=== PATIENT | female | born 1990 | race American Indian/Alaskan Native ===

== ENCOUNTER 2017-08-29 19:57 | Inpatient (IN) | payer MEDICAID ==
[2017-08-29] MEDS ORDERED: ASPIRIN PO ONE (20:53)
[2017-08-29 21:36] LABS: Basophils % (Auto) 0.4 % (0.0-1.8); Hematocrit 35.3 % (30.3-42.9); Hemoglobin 11.8 gm/dl (10.1-14.3); Lymphocytes # (Auto) 1.3 K/mm3 (1.2-5.4); Lymphocytes % (Auto) 13.2 % (13.4-35.0); Mean Corpuscular HGB Conc 34 % (30-34); Mean Corpuscular Hemoglobin 26 pg (28-32); Mean Corpuscular Volume 77 fl (79-97); Monocytes # (Auto) 0.4 K/mm3 (0.0-0.8); Monocytes % (Auto) 4.4 % (0.0-7.3); Platelet Count 332 K/mm3 (140-440); Red Blood Count 4.58 M/mm3 (3.65-5.03); Red Cell Distribution Width 15.1 % (13.2-15.2)
[2017-08-29 22:23] LABS: BUN/Creatinine Ratio 23; Blood Urea Nitrogen 9 mg/dL (7-17); Calcium 10.5 mg/dL (8.4-10.2); Hemolysis Index 1
[2017-08-29] MEDS ORDERED: NACL 0.9% 1000 ML 1,000 ML IV ONE (23:56)
[2017-08-29] MEDS ORDERED: REGLAN IV ONE (23:58)
--- NOTE | 2017-08-30 00:02 | Emergency Department Report ---
HPI - General Chief Complaint: Chest Pain Time Seen by Provider: 08/29/17 23:43 - HPI HPI: Room 8 The patient is a 27-year-old female presented with a chief complaint of chest pain. The patient states she developed substernal chest pain and shortness of breath last night. The patient states she has a substernal tightness/squeezing pain that has been intermittent since last night. The patient states it is associated with shortness of breath, nausea/vomiting and possibly diaphoresis. Patient states she is also had intermittent lower abdominal pain for the past 2 days. Patient denies fever or vaginal bleeding. The patient states she was diagnosed with a PE during her last approximately 2 years ago. The patient states she is only on aspirin currently Location: Chest Duration: Intermittent since yesterday Quality: Squeezing Severity: Moderate Modifying factors: [see above] Context: [see above] Mode of transportation: [not driving] ED Past Medical Hx - Past Medical History Previous Medical History?: Yes Hx Pulmonary Embolism: Yes (during ) Additional medical history: pre eclampsia. hyperthyroidism. hypergravidarum. anemia. gastritis - Surgical History Past Surgical History?: No - Family History Family history: no significant - Social History Smoking Status: Never Smoker Substance Use Type: None (denies illicit drug use) - Medications Home Medications: Home Medications Medication Instructions Recorded Confirmed Last Taken Type Ciprofloxacin HCl [Cipro] 500 mg PO BID #14 tablet 01/27/13 Unknown Rx Fluconazole [Diflucan] 150 mg PO QDAY #1 tablet 01/27/13 Unknown Rx Gentamicin 0.3% Ophth Soln 2 drops OP Q4H #1 bottle 01/27/13 Unknown Rx metroNIDAZOLE [Flagyl] 500 mg PO BID #14 tablet 01/27/13 Unknown Rx ED Review of Systems ROS: Stated complaint: NAUSEA/HEADACHE Other details as noted in HPI Constitutional: diaphoresis. denies: fever Eyes: denies: eye pain ENT: denies: throat pain Respiratory: shortness of breath Cardiovascular: chest pain Gastrointestinal: abdominal pain, nausea, vomiting Genitourinary: denies: dysuria Musculoskeletal: denies: back pain Neurological: denies: headache Physical Exam - Physical Exam Vital Signs: Vital Signs 08/29/17 20:44 Temperature 98.8 F Pulse Rate 104 H Respiratory 18 Rate Blood Pressure 113/69 O2 Sat by Pulse 99 Oximetry Physical Exam: GENERAL: The patient is well-developed well-nourished female lying on stretcher appearing to be in moderate discomfort. [] HEENT: Normocephalic. Atraumatic. Extraocular motions are intact. Patient has moist mucous membranes. NECK: Supple. Trachea midline CHEST/LUNGS: Clear to auscultation. There is no respiratory distress noted. HEART/CARDIOVASCULAR: Regular. There is no tachycardia. There is no gallop rub or murmur. ABDOMEN: Abdomen is soft, with trace discomfort to the right lower quadrant/ suprapubic region. There is no rebound or guarding. Patient has normal bowel sounds. There is no abdominal distention. SKIN: There is no rash. There is no edema. There is no diaphoresis. NEURO: The patient is awake, alert, and oriented. The patient is cooperative. The patient has normal speech MUSCULOSKELETAL: There is no evidence of acute injury. ED Course Vital Signs 08/29/17 20:44 Temperature 98.8 F Pulse Rate 104 H Respiratory 18 Rate Blood Pressure 113/69 O2 Sat by Pulse 99 Oximetry ED Medical Decision Making - Lab Data Result diagrams: 08/29/17 21:07 08/29/17 21:07 - EKG Data -: EKG Interpreted by Nh EKG shows normal: sinus rhythm Rate: normal - EKG Data When compared to previous EKG there are: previous EKG unavailable Interpretation: nonspecific ST-T wave jerry (T-wave inversion in leads 2, 3, aVF, V2, V3, V4, V5. Biphasic T-wave in lead V6) - Radiology Data Radiology results: report reviewed (CT chest), image reviewed (CT chest) CT chest (read by radiologist)-there is no evidence of pulmonary arterial emboli. The lungs are clear without infiltrate, effusion or pneumothorax. - Differential Diagnosis PE, ACS GERD, pericarditis Critical care attestation.: If time is entered above; I have spent that time in minutes in the direct care of this critically ill patient, excluding procedure time. ED Disposition Clinical Impression: Chest pain Disposition: - OP ADMIT IP TO THIS HOSP Is pt being admited?: Yes Condition: Stable Instructions: Chest Pain (ED) Referrals: PRIMARY CARE, [Primary Care Provider] - 3-5 Days
--- NOTE | 2017-08-30 01:46 | Cat Scan Report ---
FINAL REPORT PROCEDURE: CT ANGIO CHEST TECHNIQUE: Computerized axial tomographic angiography of the chest and pulmonary arteries was performed after the IV injection of iodinated nonionic contrast. The image data was postprocessed using maximum intensity projection (MIP) and 2-dimensional multiplanar reformatted (MPR) techniques. The examination is specifically tailored to the evaluation of the pulmonary arteries per clinical request. HISTORY: Short of breath 786.09, chest pain 786.50, chest pain, shortness of breath. COMPARISON: No prior studies are available for comparison. FINDINGS: Heart and pericardium: Normal. Thoracic aorta: Normal. Pulmonary vasculature: Normal. No pulmonary emboli. Lymph nodes: No enlarged thoracic lymph nodes. Lungs: Normal. Pleural space: No effusion, thickening, or pneumothorax. Musculoskeletal structures: No significant abnormality. Upper abdominal structures: No significant abnormality. IMPRESSION: There is no evidence of pulmonary arterial emboli. The lungs are clear without infiltrate, effusion or pneumothorax..
[2017-08-30 02:09] LABS: Bacteria,Urine 1+ /HPF (Negative); Bilirubin,Urine NEG (Negative); Blood,Urine NEG (Negative); Color,Urine Yellow (Yellow); Hyaline Casts,Urine 11 /LPF; Mucus,Urine 3+ /HPF
--- NOTE | 2017-08-30 02:56 | Ultrasound Report ---
FINAL REPORT PROCEDURE: US OB TRANSVAGINAL and transabdominal TECHNIQUE: Real-time transabdominal and transvaginal sonography of the uterus, placenta, amniotic fluid, adnexa, and fetus was performed with image documentation. Measurements were obtained to determine age/size. M-mode Doppler was used to document heartbeat. CPT 14588 and 22418 HISTORY: intermittent lower abdominal pain. COMPARISON: No prior studies are available for comparison. FINDINGS: ADDITIONAL GESTATION: None. CRL: 22 mm, which corresponds to a gestational age of: 8 weeks, 6 days. Yolk Sac: Normal. Embryonic Cardiac Activity: 171 beats per minute Gestational Sac: Normal. Amniotic fluid: Normal. Cervix: Normal. Right Ovary: Normal. Left Ovary: There is a dominant cyst on the left ovary this measures 18 millimeters Estimated delivery date: 04/05/2018 Uterus and adnexa: Normal. IMPRESSION: 1. Single live intrauterine gestation at approximately 8 weeks, 6 days. 2. EDC by US 04/05/2018 3. Complete anatomic survey at 18-20 weeks suggested.
--- NOTE | 2017-08-30 02:57 | Ultrasound Report ---
FINAL REPORT PROCEDURE: US OB TRANSVAGINAL and transabdominal TECHNIQUE: Real-time transabdominal and transvaginal sonography of the uterus, placenta, amniotic fluid, adnexa, and fetus was performed with image documentation. Measurements were obtained to determine age/size. M-mode Doppler was used to document heartbeat. CPT 69919 and 13312 HISTORY: intermittent lower abdominal pain. COMPARISON: No prior studies are available for comparison. FINDINGS: ADDITIONAL GESTATION: None. CRL: 22 mm, which corresponds to a gestational age of: 8 weeks, 6 days. Yolk Sac: Normal. Embryonic Cardiac Activity: 171 beats per minute Gestational Sac: Normal. Amniotic fluid: Normal. Cervix: Normal. Right Ovary: Normal. Left Ovary: There is a dominant cyst on the left ovary this measures 18 millimeters Estimated delivery date: 04/05/2018 Uterus and adnexa: Normal. IMPRESSION: 1. Single live intrauterine gestation at approximately 8 weeks, 6 days. 2. EDC by US 04/05/2018 3. Complete anatomic survey at 18-20 weeks suggested.
[2017-08-30] MEDS ORDERED: SODIUM CHLORIDE FLUSH SYRINGE 10 ML IV PRN (03:04)
[2017-08-30] MEDS ORDERED: TYLENOL PO PRN (03:04)
--- NOTE | 2017-08-30 03:24 | History and Physical Report ---
History of Present Illness Date of examination: 08/30/17 History of present illness: 27 year-old woman with history of 8 weeks comes to the ER for evaluation of chest pain that started yesterday. Chest pain is in the epigastric area,unable to describe, intermittent every 1 minute, intensity 5/10 , no radiation, he cannot identify exacerbating or relieving factor. Admits to shortness of breath, denies no nausea vomiting, diaphoresis, palpitations. Also complain of lower abdominal cramping, no vaginal bleed Review of systems Constitutional: no weight loss, chills Ears, eyes, nose, mouth and throat: no nasal congestion, no nasal discharge, no sinus pressure, no vision change, no red eye. Neck: No neck pain or rigidity. Cardiovascular: no palpitations Respiratory: no cough Gastrointestinal: no abdominal pain, hematochezia Genitourinary : no frequency , no hematuria Musculoskeletal: no joint swelling or muscle ache Integumentary: no rash, no pruritis Neurological: no parathesias, no numbness, no focal weakness Endocrine: no cold or heat intolerance, no polyuria or polydipsia Hematologic/Lymphatic: no easy bruising, no easy bleeding, no gland swelling Allergic/Immunologic: no urticaria, no angioedema. PAST MEDICAL HISTORY: PAST SURGICAL HISTORY: None SOCIAL HISTORY: No alcohol, tobacco, no drugs FAMILY HISTORY: Hypertension Medications and Allergies Allergies Allergy/AdvReac Type Severity Reaction Status Date / Time morphine Allergy Headache Verified 08/29/17 20:55 ondansetron Allergy Vomiting Verified 08/29/17 20:55 [From Zofran (as hydrochloride)] promethazine [From Phenergan] Allergy Vomiting Verified 08/29/17 20:55 Home Medications Medication Instructions Recorded Confirmed Last Taken Type Ciprofloxacin HCl [Cipro] 500 mg PO BID #14 tablet 01/27/13 Unknown Rx Fluconazole [Diflucan] 150 mg PO QDAY #1 tablet 01/27/13 Unknown Rx Gentamicin 0.3% Ophth Soln 2 drops OP Q4H #1 bottle 01/27/13 Unknown Rx metroNIDAZOLE [Flagyl] 500 mg PO BID #14 tablet 01/27/13 Unknown Rx Active Meds: Active Medications Acetaminophen (Tylenol) 650 mg PO Q4H PRN PRN Reason: Pain MILD(1-3)/Fever >100.5/SCHREIBER Enoxaparin Sodium (Lovenox) 40 mg SUB-Q QDAY@1000 [facility] Sodium Chloride (Nacl 0.9% 1000 Ml) 1,000 mls @ 125 mls/hr IV DIRECT [facility] Sodium Chloride (Sodium Chloride Flush Syringe 10 Ml) 10 ml IV BID [facility] Sodium Chloride (Sodium Chloride Flush Syringe 10 Ml) 10 ml IV PRN PRN PRN Reason: LINE FLUSH Exam - Physical Exam Narrative exam: Gen. appearance: Patient lying in bed in no acute distress, on BIPAP HEENT: Normocephalic/atraumatic, pupils equal round reactive to light, extra occular movement intact, no scleral icterus, no JVD or thyromegaly or nodule, neck is supple, mucous membrane moist, no erythema or exudate Heart: S1-S2, regular rate and rhythm Lungs:Clear, breathing comfortable Abdomen: Positive bowel sounds, nontender, nondistended, no organomegaly Extremities: No edema, cyanosis, clubbing Neuro:: Oriented 3 , cranial nerves II-12 intact, speech, motor intact Skin: No rash, nodules, warm dry - Constitutional Vitals: Temp Pulse Resp BP Pulse Ox 98.4 F 104 H 18 113/69 97 08/30/17 00:16 08/29/17 20:44 08/30/17 01:34 08/29/17 20:44 08/30/17 01:34 Results - Labs CBC & Chem 7: 08/29/17 21:07 08/29/17 21:07 Labs: Abnormal lab results 08/29/17 08/29/17 08/30/17 Range/Units 21:07 21:07 00:31 MCV 77 L (79-97) fl MCH 26 L (28-32) pg Lymph % (Auto) 13.2 L (13.4-35.0) % Seg Neutrophils % 82.0 H (40.0-70.0) % Seg Neutrophils # 8.0 H (1.8-7.7) K/mm3 Sodium 135 L (137-145) mmol/L Chloride 97.1 L (98-107) mmol/L Carbon Dioxide 15 L (22-30) mmol/L Creatinine 0.4 L (0.7-1.2) mg/dL Glucose 110 H (65-100) mg/dL Calcium 10.5 H (8.4-10.2) mg/dL HCG, Quant 893923 H (0-4) mIU/mL Ur Specific [place] (1.003-1.030) U Epithel Cells (Auto) (0-13.0) /HPF 08/30/17 Range/Units 01:52 MCV (79-97) fl MCH (28-32) pg Lymph % (Auto) (13.4-35.0) % Seg Neutrophils % (40.0-70.0) % Seg Neutrophils # (1.8-7.7) K/mm3 Sodium (137-145) mmol/L Chloride (98-107) mmol/L Carbon Dioxide (22-30) mmol/L Creatinine (0.7-1.2) mg/dL Glucose (65-100) mg/dL Calcium (8.4-10.2) mg/dL HCG, Quant (0-4) mIU/mL Ur Specific [place] 1.031 H (1.003-1.030) U Epithel Cells (Auto) 19.0 H (0-13.0) /HPF - Imaging and Cardiology CT scan - chest: report reviewed Assessment and Plan transvaginal, US reviewed ASsessment Chest pain Abdominal cramps/ Plan Admit to medicine Check cardiac enzymes, echo, consult cardiology Consult OB, strt iv fluid dvt prophalaxis
[2017-08-30] MEDS ORDERED: NACL 0.9% 1000 ML 1,000 ML IV SCH (04:00)
[2017-08-30 04:19] LABS: Creatine Kinase MB < 1.0 ng/mL (0.0-4.0)
[2017-08-30] MEDS: LOVENOX SUB-Q SCH (10:00)
[2017-08-30] MEDS: SODIUM CHLORIDE FLUSH SYRINGE 10 ML IV SCH ×2 (10:00→22:30)
[2017-08-30] MEDS ORDERED: LOVENOX SUB-Q SCH (10:00)
[2017-08-30 10:17] LABS: Creatine Kinase MB < 1.0 ng/mL (0.0-4.0)
[2017-08-30 10:53] LABS: BUN/Creatinine Ratio 20; Blood Urea Nitrogen 8 mg/dL (7-17); Calcium 10.1 mg/dL (8.4-10.2); Hemolysis Index 2
--- NOTE | 2017-08-30 17:49 | Consultation ---
History of Present Illness Consult date: 08/30/17 Consult reason: chest pain History of present illness: Nausea and vomiting 8 weeks History of hyperemesis gravidarum in her first Atypical chest pain worse with vomiting ECG showing inferior and anterior T wave inversions Echocardiogram is showing a normal LVEF CT chest showing no PE She denies family history of premature CAD or sudden cardiac Past History Past Medical History: No medical history Past Surgical History: No surgical history Social history: no significant social history Family history: no significant family history Medications and Allergies Allergies Allergy/AdvReac Type Severity Reaction Status Date / Time morphine Allergy Headache Verified 08/29/17 20:55 ondansetron Allergy Vomiting Verified 08/29/17 20:55 [From Zofran (as hydrochloride)] promethazine [From Phenergan] Allergy Vomiting Verified 08/29/17 20:55 Home Medications Medication Instructions Recorded Confirmed Last Taken Type Ciprofloxacin HCl [Cipro] 500 mg PO BID #14 tablet 01/27/13 Unknown Rx Fluconazole [Diflucan] 150 mg PO QDAY #1 tablet 01/27/13 Unknown Rx Gentamicin 0.3% Ophth Soln 2 drops OP Q4H #1 bottle 01/27/13 Unknown Rx metroNIDAZOLE [Flagyl] 500 mg PO BID #14 tablet 01/27/13 Unknown Rx Active Meds: Active Medications Acetaminophen (Tylenol) 650 mg PO Q4H PRN PRN Reason: Pain MILD(1-3)/Fever >100.5/SCHREIBER Enoxaparin Sodium (Lovenox) 40 mg SUB-Q QDAY@1000 [facility] Last Admin: 08/30/17 10:00 Dose: 40 mg Sodium Chloride (Nacl 0.9% 1000 Ml) 1,000 mls @ 125 mls/hr IV DIRECT [facility] Sodium Chloride (Sodium Chloride Flush Syringe 10 Ml) 10 ml IV BID [facility] Last Admin: 08/30/17 10:00 Dose: 10 ml Sodium Chloride (Sodium Chloride Flush Syringe 10 Ml) 10 ml IV PRN PRN PRN Reason: LINE FLUSH Review of Systems All systems: negative Physical Examination Vital Signs Temp Pulse Resp BP Pulse Ox 98.8 F 104 H 18 113/69 99 08/29/17 20:44 08/29/17 20:44 08/29/17 20:44 08/29/17 20:44 08/29/17 20:44 General appearance: no acute distress Neck: Positive: neck supple Cardiac: Positive: Reg Rate and Rhythm Lungs: Positive: Normal Exam Neuro: Positive: Grossly Intact Abdomen: Positive: Soft Extremities: Present: normal Results 08/29/17 21:07 08/30/17 08:26 Cardiac Enzymes 08/30/17 08/30/17 Range/Units 03:23 08:26 CK-MB (CK-2) < 1.0 < 1.0 (0.0-4.0) ng/mL CBC 08/29/17 Range/Units 21:07 WBC 9.8 (4.5-11.0) K/mm3 RBC 4.58 (3.65-5.03) M/mm3 Hgb 11.8 (10.1-14.3) gm/dl Hct 35.3 (30.3-42.9) % Plt Count 332 (140-440) K/mm3 Lymph # 1.3 (1.2-5.4) K/mm3 [place] # 0.4 (0.0-0.8) K/mm3 Eos # 0.0 (0.0-0.4) K/mm3 Baso # 0.0 (0.0-0.1) K/mm3 Comprehensive Metabolic Panel 08/29/17 08/30/17 Range/Units 21:07 08:26 Sodium 135 L 136 L (137-145) mmol/L Potassium 3.8 3.9 (3.6-5.0) mmol/L Chloride 97.1 L 99.7 (98-107) mmol/L Carbon Dioxide 15 L 21 L (22-30) mmol/L BUN 9 8 (7-17) mg/dL Creatinine 0.4 L 0.4 L (0.7-1.2) mg/dL Glucose 110 H 92 (65-100) mg/dL Calcium 10.5 H 10.1 (8.4-10.2) mg/dL - EKG Interpretation EKG: sinus rhythm EKG interpretations - Telemetry EKG Rhythm: Sinus Rhythm Assessment and Plan Atypical chest pain due to recurrent vomiting Normal LVEF Normal CT chest Negative troponin x 3 8 weeks with a history of hyperemesis gravidarum Abnormal ECG - Inverted anterior T waves - ? persistent juvenile pattern No previous ECG for comparison Recommendations: Symptoms are not consistent with ACS Symptomatic treatment of her nausea, vomiting and reflux type pain is warranted. Will defer to primary service and OB
--- NOTE | 2017-08-30 17:55 | Event Note ---
Date: 08/30/17 Patient is 27yo , 8 weeks 6 days, presents with nausea, vomiting, chest pain. I have seen and examined her. OB/Gyne to evaluate.
--- NOTE | 2017-08-30 19:24 | Consultation ---
History of Present Illness Consult date: 08/30/17 Requesting physician: AIRAM SAAVEDRA Reason for consult: other (8 wks gestation, h/o PE in pregancy, nausea and vomiting) History of present illness: Pt is a 27 y/o at 8 6/7 weeks that presented to ER c/o nausea and vomiting, tachycardia and chest pain. She has started PNC in [place]. She has h /o DVT with previous but was not started on lovanoxx until hospital admission. She was being referred to [facility] but states she was not having this appointment until 12k wks. She has had home health arranged via her current OB( through [facility]) office with [facility] and Reglan pump is to be delivered to her house on tomorrow as per pt. She states she was have 20-30 times per day of vomiting but states since admission last night she has had only 6 episodes of vomiting with eating current regular diet. Currently she c/o have reflux followed by nausea. She has no chest pain but did c/o burning sensation in chest c/w reflux pain. No bleeding and no pelvic pain. First also was complicated by Pre E, HEELP syndrome, hypothyroid dz. Pt has had only one visit with ob at this point. Past History Past Medical History: hypertension, thyroid disease, GERD, deep vein thrombosis (with first ), other (hyperemesis with first ) Past Surgical History: no surgical history [employer]IST History: denies: abnormal PAP smear Social history: no significant social history - Obstetrical History Expected Date of Delivery: 04/05/18 Actual Gestation: 8 Week(s) 6 Day(s) : 2 Para: 0 Hx # Term Pregnancies: 1 (@ 22 wks; pre e; IUFD; HELLP; hyperemesis 2015) Number of Living Children: 0 Medications and Allergies Allergies Allergy/AdvReac Type Severity Reaction Status Date / Time morphine Allergy Headache Verified 08/29/17 20:55 ondansetron Allergy Vomiting Verified 08/29/17 20:55 [From Zofran (as hydrochloride)] promethazine [From Phenergan] Allergy Vomiting Verified 08/29/17 20:55 Home Medications Medication Instructions Recorded Confirmed Last Taken Type Ciprofloxacin HCl [Cipro] 500 mg PO BID #14 tablet 01/27/13 Unknown Rx Fluconazole [Diflucan] 150 mg PO QDAY #1 tablet 01/27/13 Unknown Rx Gentamicin 0.3% Ophth Soln 2 drops OP Q4H #1 bottle 01/27/13 Unknown Rx metroNIDAZOLE [Flagyl] 500 mg PO BID #14 tablet 01/27/13 Unknown Rx Active Meds: Active Medications Acetaminophen (Tylenol) 650 mg PO Q4H PRN PRN Reason: Pain MILD(1-3)/Fever >100.5/SCHREIBER Enoxaparin Sodium (Lovenox) 40 mg SUB-Q QDAY@1000 [facility] Last Admin: 08/30/17 10:00 Dose: 40 mg Sodium Chloride (Nacl 0.9% 1000 Ml) 1,000 mls @ 125 mls/hr IV DIRECT [facility] Sodium Chloride (Sodium Chloride Flush Syringe 10 Ml) 10 ml IV BID [facility] Last Admin: 08/30/17 10:00 Dose: 10 ml Sodium Chloride (Sodium Chloride Flush Syringe 10 Ml) 10 ml IV PRN PRN PRN Reason: LINE FLUSH Review of Systems All systems: negative - Vital Signs Vital signs: Vital Signs Temp Pulse Resp BP Pulse Ox 98.8 F 104 H 18 113/69 99 08/29/17 20:44 08/29/17 20:44 08/29/17 20:44 08/29/17 20:44 08/29/17 20:44 Temp Pulse Resp BP Pulse Ox 98.6 F 80 14 117/77 98 08/30/17 18:20 08/30/17 18:20 08/30/17 18:20 08/30/17 18:20 08/30/17 18:20 - Physical Exam Breasts: Positive: deferred Lungs: Positive: Normal air movement Abdomen: Positive: normal appearance, soft. Negative: distention, tenderness Genitourinary (Female): Positive: other (deferred as pt has no pelvic c/o at this time) Extremities: Positive: normal Results Result Diagrams: 08/29/17 21:07 08/30/17 08:26 Abnormal lab results 08/29/17 08/29/17 08/30/17 Range/Units 21:07 21:07 00:31 MCV 77 L (79-97) fl MCH 26 L (28-32) pg Lymph % (Auto) 13.2 L (13.4-35.0) % Seg Neutrophils % 82.0 H (40.0-70.0) % Seg Neutrophils # 8.0 H (1.8-7.7) K/mm3 Sodium 135 L (137-145) mmol/L Chloride 97.1 L (98-107) mmol/L Carbon Dioxide 15 L (22-30) mmol/L Creatinine 0.4 L (0.7-1.2) mg/dL Glucose 110 H (65-100) mg/dL Calcium 10.5 H (8.4-10.2) mg/dL HCG, Quant [id number] H (0-4) mIU/mL Ur Specific [place] (1.003-1.030) U Epithel Cells (Auto) (0-13.0) /HPF 08/30/17 08/30/17 Range/Units 01:52 08:26 MCV (79-97) fl MCH (28-32) pg Lymph % (Auto) (13.4-35.0) % Seg Neutrophils % (40.0-70.0) % Seg Neutrophils # (1.8-7.7) K/mm3 Sodium 136 L (137-145) mmol/L Chloride (98-107) mmol/L Carbon Dioxide 21 L (22-30) mmol/L Creatinine 0.4 L (0.7-1.2) mg/dL Glucose (65-100) mg/dL Calcium (8.4-10.2) mg/dL HCG, Quant (0-4) mIU/mL Ur Specific [place] 1.031 H (1.003-1.030) U Epithel Cells (Auto) 19.0 H (0-13.0) /HPF All other labs normal. Assessment and Plan - Patient Problems (1) 8 weeks gestation of Current Visit: Yes Status: Acute (2) Nausea and vomiting during Current Visit: Yes Status: Acute Plan to address problem: -pt has allergy to zofran and and phenergan and states she did well on reglan and reglan pump last . She states case picker thought her current ob has arranged for pump to be delivered to her home. She is to contact them upon d /c as pump was to be delivered on tomorrow and she will still be inhouse. OK to d/c home on reglan po until pump is established. -K+ normal so does not need to be replaced at this time -seems to be stimulated by reflux, will start IV pepcid at this time -thanks for the consultation and will con't to follow with the team. (3) H/O deep venous thrombosis Current Visit: Yes Status: Acute Plan to address problem: -currently pt is on lovanoxx 40mg SQ q day. Will con't at this time. -MFM consulted for further imput regarding dosage and length of treatment -cont baby ASA daily also (4) H/O pre-eclampsia in prior , currently Current Visit: Yes Status: Acute Plan to address problem: -cont baby ASA at this time
[2017-08-30] MEDS: PEPCID IV SCH (21:00)
[2017-08-30] MEDS: REGLAN IV PRN (21:00)
[2017-08-31 09:15] LABS: Basophils % (Auto) 0.6 % (0.0-1.8); Eosinophils % (Auto) 0.5 % (0.0-4.3); Hematocrit 31.3 % (30.3-42.9); Hemoglobin 10.2 gm/dl (10.1-14.3); Lymphocytes # (Auto) 1.9 K/mm3 (1.2-5.4); Lymphocytes % (Auto) 22.5 % (13.4-35.0); Mean Corpuscular HGB Conc 33 % (30-34); Mean Corpuscular Volume 77 fl (79-97); Monocytes # (Auto) 0.7 K/mm3 (0.0-0.8); Monocytes % (Auto) 8.1 % (0.0-7.3); Platelet Count 290 K/mm3 (140-440); Red Blood Count 4.07 M/mm3 (3.65-5.03)
[2017-08-31 09:21] LABS: Mean Corpuscular Hemoglobin 25 pg (28-32)
[2017-08-31 09:35] LABS: BUN/Creatinine Ratio 15; Blood Urea Nitrogen 6 mg/dL (7-17); Calcium 9.4 mg/dL (8.4-10.2); Hemolysis Index 0
--- NOTE | 2017-08-31 10:49 | Discharge Summary ---
Providers - Providers Date of Admission: 08/30/17 03:04 Date of discharge: 08/31/17 Attending physician: HUMBERTO BARNES 08/30/17 03:04 Consult to Physician [CONS] Routine Comment: Consulting Provider: WILLAM DE LA GARZA Physician Instructions: Reason For Exam: cp Consult to Physician [CONS] Routine Comment: spoke with Jina Consulting Provider: VICKEY SEALS Physician Instructions: Reason For Exam: abd cramp/preg 08/30/17 19:26 Consult to Physician [CONS] Routine Comment: Consulting Provider: SAI CHAVARRIA Physician Instructions: evaluate for recomendations regarding lovanoxx Reason For Exam: 8wks, previous PE with pregancy, hyperemesis Primary care physician: TR[employer] M[employer] OPERATOR Hospitalization Condition: Fair Disposition: DC-01 TO HOME OR SELFCARE Exam - Constitutional Vitals: Temp Pulse Resp BP Pulse Ox 98.9 F 83 14 113/78 100 08/31/17 08:00 08/31/17 08:00 08/31/17 08:00 08/31/17 08:00 08/31/17 08:00 Plan Activity: advance as tolerated Diet: regular Additional Instructions: 1.Follow up with Primary Ob/Gyne in 2-3 days Follow up with: PRIMARY CARE, [Primary Care Provider] - 3-5 Days
--- NOTE | 2017-08-31 12:08 | Progress Note ---
Assessment and Plan - Patient Problems (1) Chest pain Current Visit: Yes Status: Acute Plan to address problem: Patient is 9 weeks , presented with protracted nausea and vomiting of hyperemesis gravidarum. There was some chest pain after repeated bouts of vomiting, likely due to gastroesophageal reflux. EKG was sinus rhythm with nonspecific transseptal T-wave inversions, which appear likely "juvenile" T- wave changes, of no clinical significance. Echocardiogram is normal left ventricle systolic function, ejection fraction 55%. No further cardiac workup is indicated, patient is stable for discharge from the telemetry floor, [place] to return to the obstetrics unit. Subjective Date of service: 08/31/17 Interval history: Patient is 9 weeks , presented with protracted nausea and vomiting of hyperemesis gravidarum. There was some chest pain after repeated bouts of vomiting, likely due to gastroesophageal reflux. EKG was sinus rhythm with nonspecific transseptal T-wave inversions, which appear likely "juvenile" T- wave changes, of no clinical significance. Echocardiogram is normal left ventricle systolic function, ejection fraction 55%. Objective Vital Signs Temp Pulse Resp BP BP Pulse Ox 08/31/17 08:00 98.9 F 83 14 113/78 100 08/31/17 04:15 98.8 F 99 H 20 108/71 99 08/31/17 04:14 94 H 100 08/31/17 01:10 98.9 F 98 H 20 97/59 100 08/31/17 01:08 72 08/31/17 01:01 92 H 100 08/30/17 21:24 100 08/30/17 19:49 98.5 F 73 20 115/75 99 08/30/17 18:20 98.6 F 80 14 117/77 98 08/30/17 12:05 98.5 F 85 14 125/78 100 - Physical Examination General: Appears Well, No Apparent Distress Neck: Positive: neck supple Cardiac: Positive: Reg Rate and Rhythm Lungs: Positive: Decreased Breath Sounds Neuro: Positive: Grossly Intact Abdomen: Positive: Soft Skin: Positive: Clear Extremities: Present: normal - Labs and Meds CBC 08/31/17 Range/Units 07:39 WBC 8.2 (4.5-11.0) K/mm3 RBC 4.07 (3.65-5.03) M/mm3 Hgb 10.2 (10.1-14.3) gm/dl Hct 31.3 (30.3-42.9) % Plt Count 290 (140-440) K/mm3 Lymph # 1.9 (1.2-5.4) K/mm3 [place] # 0.7 (0.0-0.8) K/mm3 Eos # 0.0 (0.0-0.4) K/mm3 Baso # 0.0 (0.0-0.1) K/mm3 Comprehensive Metabolic Panel 08/31/17 Range/Units 07:39 Sodium 134 L (137-145) mmol/L Potassium 3.5 L (3.6-5.0) mmol/L Chloride 104.5 (98-107) mmol/L Carbon Dioxide 20 L (22-30) mmol/L BUN 6 L (7-17) mg/dL Creatinine 0.4 L (0.7-1.2) mg/dL Glucose 76 (65-100) mg/dL Calcium 9.4 (8.4-10.2) mg/dL
--- NOTE | 2017-08-31 14:42 | Progress Note ---
Assessment and Plan Assessment and plan: Hyperemesis gravidarum Nausea, vomiting improved but present. Will sign off and transfer to care of Dr. Shikha Tomlinson, associate professor of music History Interval history: feels better, Nausea vomiting Hospitalist Physical - Physical exam Narrative exam: Gen : Not in acute distress, lying in bed HEENT:Normocephalic, atraumatic Neck: supple, No JVD Lungs: Clear to auscultation, no crackles, no wheeze, no rhonchi, Heart :S1 and S2 reg, no murmurs, rubs or gallop Abd:soft, non tender, non distended, normal bowel sounds Ext: No edema, no clubbing, no cyanosis Neuro: Awake,alert,oriented x 3, no focal signs Psych: Normal mood - Constitutional Vitals: Temp Pulse Resp BP Pulse Ox 98.9 F 83 14 113/78 100 08/31/17 08:00 08/31/17 08:00 08/31/17 08:00 08/31/17 08:00 08/31/17 08:00 General appearance: Present: no acute distress Results - Labs CBC & Chem 7: 08/31/17 07:39 08/31/17 07:39 Labs: Laboratory Last Values WBC 8.2 K/mm3 (4.5-11.0) 08/31/17 07:39 RBC 4.07 M/mm3 (3.65-5.03) 08/31/17 07:39 Hgb 10.2 gm/dl (10.1-14.3) 08/31/17 07:39 Hct 31.3 % (30.3-42.9) 08/31/17 07:39 MCV 77 fl (79-97) L 08/31/17 07:39 MCH 25 pg (28-32) L 08/31/17 07:39 MCHC 33 % (30-34) 08/31/17 07:39 RDW 15.0 % (13.2-15.2) 08/31/17 07:39 Plt Count 290 K/mm3 (140-440) 08/31/17 07:39 Lymph % (Auto) 22.5 % (13.4-35.0) 08/31/17 07:39 [place] % (Auto) 8.1 % (0.0-7.3) H 08/31/17 07:39 Eos % (Auto) 0.5 % (0.0-4.3) 08/31/17 07:39 Baso % (Auto) 0.6 % (0.0-1.8) 08/31/17 07:39 Lymph # 1.9 K/mm3 (1.2-5.4) 08/31/17 07:39 [place] # 0.7 K/mm3 (0.0-0.8) 08/31/17 07:39 Eos # 0.0 K/mm3 (0.0-0.4) 08/31/17 07:39 Baso # 0.0 K/mm3 (0.0-0.1) 08/31/17 07:39 Seg Neutrophils % 68.3 % (40.0-70.0) 08/31/17 07:39 Seg Neutrophils # 5.6 K/mm3 (1.8-7.7) 08/31/17 07:39 Sodium 134 mmol/L (137-145) L 08/31/17 07:39 Potassium 3.5 mmol/L (3.6-5.0) L 08/31/17 07:39 Chloride 104.5 mmol/L (98-107) 08/31/17 07:39 Carbon Dioxide 20 mmol/L (22-30) L 08/31/17 07:39 Anion Gap 13 mmol/L 08/31/17 07:39 BUN 6 mg/dL (7-17) L 08/31/17 07:39 Creatinine 0.4 mg/dL (0.7-1.2) L 08/31/17 07:39 Estimated GFR > 60 ml/min 08/31/17 07:39 BUN/Creatinine Ratio 15 % 08/31/17 07:39 Glucose 76 mg/dL (65-100) 08/31/17 07:39 Calcium 9.4 mg/dL (8.4-10.2) 08/31/17 07:39 Total Creatine Kinase 40 units/L (30-135) 08/30/17 08:26 CK-MB (CK-2) < 1.0 ng/mL (0.0-4.0) 08/30/17 08:26 CK-MB (CK-2) Rel Index 2.5 (0-4) 08/30/17 08:26 Troponin T < 0.010 ng/mL (0.00-0.029) 08/30/17 08:26 TSH 0.008 mlU/mL (0.270-4.200) L 08/31/17 07:39 HCG, Quant [id number] mIU/mL (0-4) H 08/30/17 00:31 Urine Color Yellow (Yellow) 08/30/17 01:52 Urine Turbidity Clear (Clear) 08/30/17 01:52 Urine pH 5.0 (5.0-7.0) 08/30/17 01:52 Ur Specific [place] 1.031 (1.003-1.030) H 08/30/17 01:52 Urine Protein 100 mg/dl mg/dL (Negative) 08/30/17 01:52 Urine Glucose (UA) 50 mg/dL (Negative) 08/30/17 01:52 Urine Ketones 80 mg/dL (Negative) 08/30/17 01:52 Urine Blood Neg (Negative) 08/30/17 01:52 Urine Nitrite Neg (Negative) 08/30/17 01:52 Urine Bilirubin Neg (Negative) 08/30/17 01:52 Urine Urobilinogen 2.0 mg/dL (<2.0) 08/30/17 01:52 Ur Leukocyte Esterase Neg (Negative) 08/30/17 01:52 Urine WBC (Auto) 5.0 /HPF (0.0-6.0) 08/30/17 01:52 Urine RBC (Auto) 4.0 /HPF (0.0-6.0) 08/30/17 01:52 U Epithel Cells (Auto) 19.0 /HPF (0-13.0) H 08/30/17 01:52 Urine Bacteria (Auto) 1+ /HPF (Negative) 08/30/17 01:52 Hyaline Casts 11 /LPF 08/30/17 01:52 Urine Mucus 3+ /HPF 08/30/17 01:52
--- NOTE | 2017-08-31 14:45 | Event Note ---
Date: 08/31/17 Called by Nurse that Dr. Tomlinson, Ob/Gyne wants patient transferred to her service. Will transfer and sign off.
--- NOTE | 2017-08-31 14:45 | Event Note ---
Date: 08/31/17 Called by nursing staff as pt has be d/c by medicine team but still c/o nausea and vomiting and does not want to be d/c home at this time. She does have home health arranged but again does not feel she is ready to be d/c from a hyperemesis standpoint. Will admit to mother baby and this time for continues hosptializaiton until hyperemeis better controlled.
[2017-08-31] MEDS: D5LR 1,000 ML IV SCH ×3 (17:00→21:58)
[2017-08-31] MEDS: REGLAN IV PRN (17:20)
[2017-08-31] MEDS: LOVENOX SUB-Q SCH (17:30)
[2017-08-31] MEDS: PEPCID IV SCH (21:57)
[2017-09-01] MEDS: REGLAN IV PRN ×3 (03:51→20:24)
[2017-09-01] MEDS: D5LR 1,000 ML IV SCH ×2 (04:52→22:20)
--- NOTE | 2017-09-01 08:04 | Progress Note ---
Subjective Date of service: 09/01/17 (pt sleeping; easily aroused) Principal diagnosis: IUP 8 weeks Hyper emisis; H/O DVT H/O PreE Interval history: Pt voicing no c/o this AM Her only question to me was "Am I going to get a PICC line?" I explained there was not an order and no one had mentioned a PICC line. VSS There is no vomit in the short on her bed appears to be spit. Pt refusing to wear SCDs Encouraged pt to be OOB, shower and ambulate. Will advance diet as tolerated. Will anticipate d/c tomorrow once home health is arranged for Reglan Pump. [facility] to see pt today. Objective - Constitutional Vitals: Vital Signs - 12hr 08/31/17 09/01/17 09/01/17 20:49 00:06 05:13 Temperature 98.9 F 99.1 F 98.8 F Pulse Rate 69 83 72 Respiratory 18 20 20 Rate Blood Pressure 99/53 127/76 119/64 O2 Sat by Pulse 100 98 100 Oximetry - Labs CBC & Chem 7: 08/31/17 07:39 08/31/17 07:39 Labs: Abnormal lab results 08/31/17 08/31/17 08/31/17 Range/Units 07:39 07:39 07:39 MCV 77 L (79-97) fl MCH 25 L (28-32) pg [place] % (Auto) 8.1 H (0.0-7.3) % Sodium 134 L (137-145) mmol/L Potassium 3.5 L (3.6-5.0) mmol/L Carbon Dioxide 20 L (22-30) mmol/L BUN 6 L (7-17) mg/dL Creatinine 0.4 L (0.7-1.2) mg/dL TSH 0.008 L (0.270-4.200) mlU/mL
[2017-09-01] MEDS ORDERED: PRENATAL VITAMIN PO SCH (10:00)
[2017-09-01 11:59] LABS: Alanine Aminotransferase 13 units/L (7-56); Albumin 3.2 g/dL (3.9-5); BUN/Creatinine Ratio 8; Blood Urea Nitrogen 3 mg/dL (7-17); Calcium 9.8 mg/dL (8.4-10.2); Hemolysis Index 8
--- NOTE | 2017-09-01 15:17 | Event Note ---
Date: 09/01/17 AGREE WITH MW EXAM AND NOTED. THERE IS NO INDICATION FOR PICC LINE AT THIS TIME. PT STATES PREVIOUSLY SHE HAD ONE WITH 1ST . THYROID STUDIES ARE ABNORMAL. WILL AWAIT INPUT BY M FOR MEDS TO BE STARTED.K+ WILL BE REPLACED AT THIS TIME IV IT HAS CONTINUED TO DECREASE.
[2017-09-01] MEDS ORDERED: KCL 10MEQ/100ML 10 MEQ/100 ML BAG IV SCH (16:00)
[2017-09-01] MEDS ORDERED: LOVENOX SUB-Q SCH (17:30)
[2017-09-01] MEDS: PROPYLTHIOURACIL PO SCH (17:34)
[2017-09-01] MEDS ORDERED: KCL 40 MEQ in NACL 0.9% 500 ML 500 ML IV ONE (18:45)
[2017-09-01] MEDS ORDERED: PEPCID IV SCH (22:00)
[2017-09-02] MEDS: PROPYLTHIOURACIL PO SCH ×3 (00:25→14:00)
[2017-09-02] MEDS: D5LR 1,000 ML IV SCH ×2 (04:40→11:30)
[2017-09-02] MEDS: REGLAN IV PRN ×3 (04:41→14:00)
--- NOTE | 2017-09-02 08:30 | Progress Note ---
Assessment and Plan patient sleeping soundly, aroused to physical contact. denies vomiting overnight, reports "only spitting." She has consumed several juices, crackers, Popsicles, and a fruit cup. [place] has only spit. Patient states she will need to be home before she can get her reglan pump. She has appointment with her MD' s 09/23/17. pt asked about infected tooth - advised she needs to be seen by dentist. Dr. Tomlinson aware. Continue current plan of care. - Patient Problems (1) 9 weeks gestation of Current Visit: Yes Status: Acute (2) Hyperthyroidism Current Visit: Yes Status: Acute (3) H/O deep venous thrombosis Current Visit: Yes Status: Acute (4) H/O pre-eclampsia in prior , currently Current Visit: Yes Status: Acute (5) Nausea and vomiting during Current Visit: Yes Status: Acute Subjective - Subjective Date of service: 09/02/17 (Coding Clerk visit) Principal diagnosis: IUP 9 weeks Hyper emisis; H/O DVT H/O PreE Patient reports: appetite normal (tolerating bland/soft diet), voiding normally , ambulating normally, no dizzy ambulation, no nauseated Objective - Vital Signs Latest vital signs: Vital Signs Temp Pulse Resp BP Pulse Ox 09/02/17 05:15 98.8 F 71 20 115/72 97 09/01/17 23:52 98.8 F 71 20 109/73 99 09/01/17 20:36 98.5 F 79 20 103/57 97 09/01/17 16:23 98.4 F 64 18 114/56 98 09/01/17 12:10 98.5 F 74 20 108/42 100 Intake and Output 09/01/17 09/02/17 09/02/17 23:59 07:59 15:59 Intake Total 360 950 Output Total 900 Balance -540 950 Intake: IV 950 D5lr 1,000 ml @ 150 mls/ 950 hr IV DIRECT ESCOBAR Rx#: [id number] Oral 360 Output: Urine 900 Void 900 Other: Total, Intake Amount 360 Total, Output Amount 900 # Voids Void 4 1 Weight 73.567 kg Patient Weight 09/02/17 23:59 Weight 73.567 kg - Exam Breasts: Present: deferred Cardiovascular: Present: Regular rate Lungs: Present: Clear to auscultation, Normal air movement Abdomen: Present: normal appearance Extremities: Present: normal - Labs Labs: Abnormal lab results 09/01/17 09/01/17 Range/Units 10:23 10:23 Potassium 3.3 L (3.6-5.0) mmol/L BUN 3 L (7-17) mg/dL Creatinine 0.4 L (0.7-1.2) mg/dL Glucose 110 H (65-100) mg/dL Albumin 3.2 L (3.9-5) g/dL Free T4 2.70 H (0.76-1.46) ng/dL
--- NOTE | 2017-09-02 12:55 | Discharge Summary ---
Providers - Providers Date of Admission: 08/30/17 03:04 Date of discharge: 09/02/17 Attending physician: HUMBERTO BARNES 08/30/17 19:26 Consult to Physician [CONS] Routine Comment: Consulting Provider: SAI CHAVARRIA Physician Instructions: evaluate for recomendations regarding lovanoxx Reason For Exam: 8wks, previous PE with pregancy, hyperemesis 08/31/17 15:00 Consult to Dietitian/Nutrition [CONS] Routine Physician Instructions: Reason For Exam: Reason for Consult: hyper grav Reason for Consult: Diet education 09/01/17 08:08 Consult to Case Management [CONS] Routine Services Needed at Discharge: Home Health Services Notified:: [id number] Additional Physician Instructions: please make sure pt has arrangments for her reglan pump Primary care physician: MANUFACTURING TECHNOLOGIST Hospitalization Reason for admission: other (hyperemesis) Hospital course: medical management of hyperemesis in the first trimester, along with medical management of Hyperthyroidism Condition at discharge: Good Disposition: DC-01 TO HOME OR SELFCARE - Discharge Diagnoses (1) 9 weeks gestation of Status: Acute (2) Hyperthyroidism Status: Acute (3) H/O deep venous thrombosis Status: Acute (4) H/O pre-eclampsia in prior , currently Status: Acute (5) Nausea and vomiting during Status: Acute Plan - Discharge Medications Prescriptions: Metoclopramide HCl [Reglan TAB] 5 mg PO TIDAC PRN #20 tablet PRN Reason: nausea or vomiting Propylthiouracil 100 mg PO TID #90 tab - Provider Discharge Summary Activity: routine Diet: other ([place]/soft diet) Instructions: routine Additional instructions: [] Smoking cessation referral if applicable(refer to patient education folder for contact #) [] Refer to [facility] Booklet Call your doctor immediately for: * Fever > 100.5 * Heavy vaginal bleeding ( >1 pad per hour) * Severe persistent headache * Shortness of breath * Reddened, hot, painful area to leg or breast * Drainage or odor from incision. * Keep incision clean and dry at all times and follow doctor's instructions regarding bathing/showering - Follow up plan Follow up: PRIMARY CAREMD [Primary Care Provider] - 3-5 Days FERMIN CASTILLO MD [Staff Physician] - 7 Days (Please follow up with your OBGYN provider as scheduled next month. Call for any questions or concerns. )
[2017-09-02 14:26] VITALS: BP 116/62
== END 2017-09-02 16:00 | disposition home health service (06) | DRG 781 ==
LOC: ED 19:57 → 4A 08-30 03:04 → OB 08-31 16:28
PROVIDERS: ADMIT Obstetrics & Gynecology; ATTEND Internal Medicine
DX: O21.0 Mild hyperemesis gravidarum (principal); O16.1 Unspecified maternal hypertension, first trimester; O99.611 Diseases of the digestive system complicating pregnancy, first trimester; O99.281 Endocrine, nutritional and metabolic diseases complicating pregnancy, first trimester; K21.9 Gastro-esophageal reflux disease without esophagitis; Z3A.08 8 weeks gestation of pregnancy; E03.9 Hypothyroidism, unspecified
CPT/HCPCS: 36415; 71275; 76801; 76817; 80048; 80053; 81001; 82550; 82553; 84439; 84443; 84484; 84702; 85025; 93005; 93010; 93306; J1650; J2765; J3480; J7030; J7040; J7121; Q9967

== ENCOUNTER 2017-09-14 22:06 | Emergency (ER) | payer MEDICAID ==
[2017-09-14] MEDS ORDERED: NACL 0.9% 1000 ML 1,000 ML IV ONE (23:21)
[2017-09-14] MEDS ORDERED: REGLAN IV ONE (23:36)
[2017-09-14] MEDS ORDERED: BENADRYL IV ONE (23:39)
[2017-09-14] MEDS ORDERED: PEPCID IV ONE (23:39)
[2017-09-14 23:49] LABS: Basophils # (Auto) 0.1 K/mm3 (0.0-0.1); Basophils % (Auto) 0.7 % (0.0-1.8); Eosinophils # (Auto) 0.3 K/mm3 (0.0-0.4); Eosinophils % (Auto) 2.8 % (0.0-4.3); Hematocrit 32.2 % (30.3-42.9); Hemoglobin 11.2 gm/dl (10.1-14.3); Lymphocytes # (Auto) 1.6 K/mm3 (1.2-5.4); Lymphocytes % (Auto) 16.1 % (13.4-35.0); Mean Corpuscular HGB Conc 35 % (30-34); Mean Corpuscular Hemoglobin 27 pg (28-32); Mean Corpuscular Volume 77 fl (79-97); Monocytes # (Auto) 0.6 K/mm3 (0.0-0.8); Monocytes % (Auto) 6.3 % (0.0-7.3); Platelet Count 351 K/mm3 (140-440); Red Blood Count 4.21 M/mm3 (3.65-5.03)
--- NOTE | 2017-09-14 23:59 | Emergency Department Report ---
HPI - General Chief Complaint: Nausea/Vomiting/Diarrhea Time Seen by Provider: 09/14/17 23:31 - [facility] HPI: Room 8 The patient is a 27-year-old female presenting with a chief complaint of nausea vomiting and abdominal cramping. The patient has a history of hyperemesis gravidarum and reportedly receives IV fluids at home in addition to being on a Reglan pump. The patient states yesterday there was an issue with her IV so was removed by her COMMERCIAL ACCOUNT EXECUTIVE. Patient comes in now with nausea vomiting and feeling dehydrated. Patient discussed lower abdominal cramping but denies vaginal bleeding. Location: [See above] Duration: 2 days Quality: Nausea, cramping Severity: Moderate Modifying factors: [see above] Context: [see above] Mode of transportation: [not driving] ED Past Medical Hx - Past Medical History Hx Hypertension: Yes Hx Pulmonary Embolism: Yes (during ) Additional medical history: pre eclampsia. hyperthyroidism. Hyperemesis gravidarum. anemia. gastritis - Surgical History Past Surgical History?: No - Family History Family history: no significant - Social History Smoking Status: Never Smoker Substance Use Type: None (denies illicit drug use) - Medications Home Medications: Home Medications Medication Instructions Recorded Confirmed Last Taken Type Metoclopramide HCl [Reglan TAB] 5 mg PO TIDAC PRN #20 tablet 08/31/17 Unknown Rx Enoxaparin [Lovenox] 40 mg SQ QDAY #30 syringe 09/02/17 Unknown Rx Propylthiouracil 100 mg PO TID #90 tab 09/02/17 Unknown Rx ED Review of Systems ROS: Stated complaint: DEHYDRATION,VOMITING Other details as noted in HPI Gastrointestinal: abdominal pain, nausea, vomiting Genitourinary: denies: abnormal menses Physical Exam - Physical Exam Vital Signs: Vital Signs 09/14/17 23:15 Temperature 98.3 F Pulse Rate 107 H Respiratory 20 Rate Blood Pressure 121/74 O2 Sat by Pulse 97 Oximetry Physical Exam: GENERAL: The patient is well-developed well-nourished female kneeling over that appeared to be in moderate discomfort. Lying relieving HEENT: Normocephalic. Atraumatic. Extraocular motions are intact. Patient has moist mucous membranes. NECK: Supple. Trachea midline CHEST/LUNGS: Clear to auscultation. There is no respiratory distress noted. HEART/CARDIOVASCULAR: Regular. There is no tachycardia. There is no gallop rub or murmur. ABDOMEN: Abdomen is soft with suprapubic discomfort to palpation. Patient has normal bowel sounds. The patient is gravid SKIN: There is no rash. There is no edema. There is no diaphoresis. NEURO: The patient is awake, alert, and oriented. The patient is cooperative. The patient has normal speech MUSCULOSKELETAL: There is no evidence of acute injury. ED Course Vital Signs 09/14/17 23:15 Temperature 98.3 F Pulse Rate 107 H Respiratory 20 Rate Blood Pressure 121/74 O2 Sat by Pulse 97 Oximetry - Consultations Consultation #1: 09/15/17 00:35 Attempted to call patient's COMMERCIAL ACCOUNT EXECUTIVE at [employer] [phone] - no answer Consultation #2: 09/15/17 00:59 [facility] COMMERCIAL ACCOUNT EXECUTIVE paged 09/15/17 01:[address] Kidd- will evaluate patient ED Medical Decision Making - Lab Data Result diagrams: 09/14/17 23:26 09/14/17 23:26 Laboratory Tests 09/14/17 09/14/17 09/14/17 23:26 23:26 23:26 WBC 10.0 RBC 4.21 Hgb 11.2 Hct 32.2 MCV 77 L MCH 27 L MCHC 35 H RDW 15.0 Plt Count 351 Lymph % (Auto) 16.1 [place] % (Auto) 6.3 Eos % (Auto) 2.8 Baso % (Auto) 0.7 Lymph # 1.6 [place] # 0.6 Eos # 0.3 Baso # 0.1 Seg Neutrophils % 74.1 H Seg Neutrophils # 7.4 Sodium 136 L Potassium 3.5 L Chloride 99.1 Carbon Dioxide 20 L Anion Gap 20 BUN 6 L Creatinine 0.4 L Estimated GFR > 60 BUN/Creatinine Ratio 15 Glucose 105 H Calcium 10.3 H Total Bilirubin 0.30 AST 18 ALT 17 Alkaline Phosphatase 67 Total Protein 8.0 Albumin 4.2 Albumin/Globulin Ratio 1.1 HCG, Qual Positive - Radiology Data Radiology results: report reviewed (pelvic ultrasound), image reviewed (pelvic ultrasound) [facility] [address] [place] [address] Ultrasound Report Signed Patient: ISIS NESBITT MR#: [id number] : 1990 Acct:[id number] Age/Sex: 27 / F ADM Date: 09/14/17 Loc: ED Attending Dr: Ordering Physician: ZACK MACIAS MD Date of Service: 09/14/17 Procedure(s): US OB <= 14 weeks fetus Accession Number(s): [id number] cc: ZACK MACIAS MD FINAL REPORT EXAM: US OB lt; = 14 WEEKS FETUS HISTORY: suprapubic cramping TECHNIQUE: Transabdominal imaging was obtained the pelvis including Doppler interrogation of the uterus. FINDINGS: The uterus measures 9.3 cm x 7 cm x 7.2 cm. Within the uterus is a gestational sac which contains a fetus. The fetus crown-rump length is 48.8 mm corresponding to an 11 week 4 day IUP. The heart rate is 161 BPM. Free fluid is not seen. Both ovaries are normal in size contour and echotexture. The right ovary measures 2.3 cm x 1.5 cm 1.8 cm. The left ovary measures 1.9 cm x 1.4 cm x 1.7 cm. IMPRESSION: Single viable IUP, 11 weeks 4 days. The heart rate is 161 BPM. Transcribed By: RB Dictated By: JUDAH COOK MD Electronically Authenticated By: JUDAH COOK MD Signed Date/Time: 09/15/1745 DD/ TD/TT: 09/15/1745 - Differential Diagnosis hyperemesis gravidarum Critical care attestation.: If time is entered above; I have spent that time in minutes in the direct care of this critically ill patient, excluding procedure time. ED Disposition Clinical Impression: Hyperemesis gravidarum, Abdominal cramping Disposition: OP ADMIT IP TO THIS HOSP Is pt being admited?: Yes Does the pt Need Aspirin: No Condition: Fair Referrals: PRIMARY CARE, [Primary Care Provider] - 3-5 Days Time of Disposition: 00:59 (COMMERCIAL ACCOUNT EXECUTIVE paged)
[2017-09-15 00:05] LABS: Alanine Aminotransferase 17 units/L (7-56); Albumin 4.2 g/dL (3.9-5); BUN/Creatinine Ratio 15; Blood Urea Nitrogen 6 mg/dL (7-17); Calcium 10.3 mg/dL (8.4-10.2); Hemolysis Index 0
--- NOTE | 2017-09-15 00:51 | Ultrasound Report ---
FINAL REPORT EXAM: US OB < = 14 WEEKS FETUS HISTORY: suprapubic cramping TECHNIQUE: Transabdominal imaging was obtained the pelvis including Doppler interrogation of the uterus. FINDINGS: The uterus measures 9.3 cm x 7 cm x 7.2 cm. Within the uterus is a gestational sac which contains a fetus. The fetus crown-rump length is 48.8 mm corresponding to an 11 week 4 day IUP. The heart rate is 161 BPM. Free fluid is not seen. Both ovaries are normal in size contour and echotexture. The right ovary measures 2.3 cm x 1.5 cm 1.8 cm. The left ovary measures 1.9 cm x 1.4 cm x 1.7 cm. IMPRESSION: Single viable IUP, 11 weeks 4 days. The heart rate is 161 BPM.
--- NOTE | 2017-09-15 01:27 | Consultation ---
History of Present Illness Consult date: 09/15/17 History of present illness: 27yo 11wks hyperemesis gravidarum admitted for dehydration after her IV was removed by OB due to infiltration. She is a patient of [facility] and has a history of DVT on Lovenox, preeclampsia and 22wk IUFD. She was admitted 08/30 for chest pain and found to have a normal evaluation. She presents witha Reglan pump and receives home health. Today her potassium is 3.5. She has received 1L NS in ER. Her history was gathered from her boyfriend. She is mildly sedated after IV Benadryl in the ER. She is resting comfortably. She is allergic to phenergan and Zofran. Past History Past Medical History: other - Obstetrical History : 2 Medications and Allergies Allergies Allergy/AdvReac Type Severity Reaction Status Date / Time morphine Allergy Headache Verified 09/14/17 23:15 ondansetron Allergy Vomiting Verified 09/14/17 23:15 [From Zofran (as hydrochloride)] promethazine [From Phenergan] Allergy Vomiting Verified 09/14/17 23:15 Home Medications Medication Instructions Recorded Confirmed Last Taken Type Metoclopramide HCl [Reglan TAB] 5 mg PO TIDAC PRN #20 tablet 08/31/17 Unknown Rx Enoxaparin [Lovenox] 40 mg SQ QDAY #30 syringe 09/02/17 Unknown Rx Propylthiouracil 100 mg PO TID #90 tab 09/02/17 Unknown Rx Review of Systems Constitutional: other (no weight loss since last admission 2 weeks prior) - Vital Signs Vital signs: Vital Signs Temp Pulse Resp BP Pulse Ox 98.3 F 107 H 20 121/74 97 09/14/17 23:15 09/14/17 23:15 09/14/17 23:15 09/14/17 23:15 09/14/17 23:15 Temp Pulse Resp BP Pulse Ox 98.3 F 82 16 112/62 100 09/14/17 23:15 09/15/17 00:44 09/15/17 00:44 09/15/17 00:44 09/15/17 00:44 - Physical Exam Abdomen: Positive: normal appearance, soft (Ultrasound confirms FHT) Results Result Diagrams: 09/14/17 23:26 09/14/17 23:26 Abnormal lab results 09/14/17 09/14/17 Range/Units 23:26 23:26 MCV 77 L (79-97) fl MCH 27 L (28-32) pg MCHC 35 H (30-34) % Seg Neutrophils % 74.1 H (40.0-70.0) % Sodium 136 L (137-145) mmol/L Potassium 3.5 L (3.6-5.0) mmol/L Carbon Dioxide 20 L (22-30) mmol/L BUN 6 L (7-17) mg/dL Creatinine 0.4 L (0.7-1.2) mg/dL Glucose 105 H (65-100) mg/dL Calcium 10.3 H (8.4-10.2) mg/dL All other labs normal. Assessment and Plan - Patient Problems (1) Hypokalemia Current Visit: Yes Status: Acute Plan to address problem: Replace with D5 KCl 20meq. Recheck BMP. (2) 11 weeks gestation of Current Visit: Yes Status: Acute Plan to address problem: F/U with home health and OB on Saturday09/16/17. (3) Hyperemesis gravidarum Current Visit: Yes Status: Acute Plan to address problem: Pepcid and Benadryl PO to supplement Reglan pump.
[2017-09-15] MEDS ORDERED: KCL 20 MEQ in LACTATED RINGERS 1,000 ML IV SCH (01:45)
[2017-09-15] MEDS ORDERED: NS/KCL 20MEQ 20 MEQ/1,000 ML BAG IV SCH (01:55)
[2017-09-15 03:01] LABS: Bilirubin,Urine NEG (Negative); Blood,Urine NEG (Negative); Color,Urine Amber (Yellow); Mucus,Urine 3+ /HPF
[2017-09-15 05:20] VITALS: BP 105/62
[2017-09-15 07:33] LABS: BUN/Creatinine Ratio 13; Blood Urea Nitrogen 5 mg/dL (7-17); Calcium 9.1 mg/dL (8.4-10.2); Hemolysis Index 18
--- NOTE | 2017-09-15 08:42 | Discharge Summary ---
Providers - Providers Date of discharge: 09/15/17 Primary care physician: LION CLARK MD Hospitalization Reason for admission: active labor, other (rehydration, replacement of potassium in ER) Delivery: other (undelivered) Condition at discharge: Stable Disposition: DC/TX-06 HOME UNDER HOME HLTH - Discharge Diagnoses (1) Hypokalemia Status: Acute Comment: 20meQ replaced --> K 4.1 at discharge (2) 11 weeks gestation of Status: Acute Comment: Spoke with Dr. Lobo at [facility] concerning patient in ER. He agrees with re-hydration and plan for patient contact [facility]/ home health to arrange hydration/restart IV at home. (3) Hyperemesis gravidarum Status: Acute Comment: Passed PO challenge Allergic phenergan/zofran Pepcid/Benadryl prescriptions written. Plan - Provider Discharge Summary Diet: other Instructions: other Additional instructions: Call your doctor immediately for: * Fever > 100.5 * Severe persistent headache * Shortness of breath * Vaginal bleeding, loss of fluid * Persistent, intractable vomiting Prescriptions: Pepcid, Benadryl DIET: Increase fluid intake. Resume [place] diet once IV restarted, 5 small meals/ day, no spicy foods. - Follow up plan Follow up: PRIMARY MD AMBER [Primary Care Provider] - 09/16/17 9:00 am ([facility])
== END 2017-09-15 09:45 | disposition home health service (06) ==
LOC: ED 22:06
DX: O21.0 Mild hyperemesis gravidarum (principal); I10 Essential (primary) hypertension; E05.90 Thyrotoxicosis, unspecified without thyrotoxic crisis or storm; Z3A.11 11 weeks gestation of pregnancy
CPT/HCPCS: 36415; 76801; 80048; 80053; 81001; 84703; 85025; 96361; 96374; 96375; 99284; J1200; J7030; J3480; J7120